=== PATIENT | female | born 1990 | race Caucasian/White ===

== ENCOUNTER 2022-07-07 10:08 | Inpatient (IN) | payer OTHER ==
[~2022-07-07] VITALS: Ht 160 cm; Wt 60.5 kg
[2022-07-07] MEDS ORDERED: ACETAMINOPHEN 325 MG TABLET PO ONE (10:45)
[2022-07-07] MEDS ORDERED: ONDANSETRON HCL 4 MG TABLET PO ONE (10:45)
[2022-07-07] MEDS ORDERED: LIDOCAINE 5% TRANSDERMAL PATCH TD ONE (10:45)
[2022-07-07 10:54] LABS: BASOPHILS % (AUTO) 0.6 % (0.0-2.0); EOSINOPHILS % (AUTO) 0.3 % (1.0-6.0); HEMATOCRIT 48.1 % (36-46); HEMOGLOBIN 16.1 g/dL (12.0-16.0); LYMPHOCYTES # (AUTO) 1.4 K/uL (1.0-4.8); LYMPHOCYTES % (AUTO) 12.6 % (22.0-44.0); MEAN CORPUSCULAR HEMOGLOBIN 27.5 pg (26.0-34.0); MEAN CORPUSCULAR HGB CONC 33.5 G/dL (31.0-37.0); MEAN CORPUSCULAR VOLUME 82 fL (80-100); MONOCYTES # (AUTO) 0.4 K/uL (0.1-1.0); MONOCYTES % (AUTO) 3.9 % (2.0-9.0); NEUTROPHILS % (AUTO) 82.6 % (40.0-70.0); PLATELET COUNT (AUTO) 193 K/uL (150-450); RED BLOOD CELL COUNT(AUTO) 5.86 MIL/uL (4.00-5.20); RED CELL DISTRIBUTION WIDTH 13.8 % (11.5-14.5)
[2022-07-07 11:07] LABS: ANION GAP 10 mmol/L (8-16); CALCIUM, TOTAL 9.6 mg/dL (8.8-10.5); CARBON DIOXIDE 25 mmol/L (22-29); CHLORIDE 100 mmol/L (98-107); GLOMERULAR FILTR. RATE CALC > 60 mL/min (>60); GLUCOSE,RANDOM 134 mg/dL (70-110); SODIUM SERUM 135 mmol/L (136-145); UREA NITROGEN, BLOOD 9 mg/dL (7-18)
[2022-07-07 11:12] LABS: ALANINE AMINOTRANSFERASE 49 U/L (12-78); ALBUMIN 3.7 g/dL (3.4-5.0); ALKALINE PHOSPHATASE 110 U/L (46-116); ASPARTATE AMINOTRANSFERASE 24 U/L (15-37); BILIRUBIN,TOTAL 0.5 mg/dL (0.1-1.0); TOTAL PROTEIN, SERUM 7.8 g/dL (6.4-8.2)
[2022-07-07] MEDS ORDERED: QUEtiapine FUMARATE 100 MG TABLET PO ONE (11:15)
[2022-07-07] MEDS ORDERED: LORazepam 1 MG TABLET PO ONE (11:15)
[2022-07-07 12:21] LABS: COVID AG,FIA SOURCE NASAL SWAB
[2022-07-07 13:31] LABS: APPEARANCE,URINE HAZY (CLEAR); BILIRUBIN,URINE NEGATIVE (NEGATIVE); GLUCOSE, URINE (UA) NEGATIVE (NEGATIVE); KETONES,URINE TRACE mg/dL (NEGATIVE); LEUKOCYTE ESTERASE ,URINE MODERATE (NEGATIVE); NITRATE,URINE NEGATIVE (NEGATIVE); OCCULT BLOOD,URINE NEGATIVE (NEGATIVE); PH,URINE 5.5 (5.0-8.0); PROTEIN,URINE TRACE mg/dL (NEGATIVE); SPECIFIC GRAVITIY, URINE 1.015 (1.003-1.030); UROBILINOGEN,URINE <=1.0 mg/dL (<=1.0)
[2022-07-07 13:39] LABS: AMPHET/METH SCREEN,URINE NEGATIVE (NEGATIVE); BARBITURATE SCREEN, URINE NEGATIVE (NEGATIVE); BENZODIAZEPINES SCREEN,URINE NEGATIVE (NEGATIVE); CANNABINOID SCREEN,URINE POSITIVE (NEGATIVE); COCAINE SCREEN,URINE NEGATIVE (NEGATIVE); METHADONE SCREEN, URINE NEGATIVE (NEGATIVE); OPIATE SCREEN,URINE NEGATIVE (NEGATIVE); PHENCYCLIDINE SCREEN,URINE NEGATIVE (NEGATIVE)
[2022-07-07 13:57] LABS: BACTERIA,URINE Moderate /HPF (None Seen); RBC,URINE None Seen /HPF (0-2); SQUAMOUS EPITHELIAL CELL,UR Few /LPF (None Seen)
[2022-07-07 14:09] VITALS: BP 123/69
[2022-07-07 20:19] VITALS: BP 118/88
[2022-07-07] MEDS ORDERED: MAGNESIUM HYDROXIDE SUSPENSION 30 ML UDCUP PO PRN (21:00)
[2022-07-07] MEDS ORDERED: ZOLPIDEM TARTRATE 5 MG TABLET PO PRN (21:00)
[2022-07-07] MEDS ORDERED: BISACODYL 10 MG RECTAL RECTAL SUPPOSITORY PR PRN (21:00)
[2022-07-07] MEDS ORDERED: IPRATROPIUM BROMIDE 0.5 MG/2.5 ML NEB SOLUTION NEB PRN (21:00)
[2022-07-07] MEDS ORDERED: ALBUTEROL SULFATE 2.5 MG/0.5 ML NEB SOLUTION NEB PRN (21:00)
[2022-07-07] MEDS ORDERED: ONDANSETRON HCL 4 MG/2 ML VIAL IVP PRN (21:00)
[2022-07-08 07:40] VITALS: BP 116/66
[2022-07-08] MEDS: HEPARIN SODIUM,PORCINE 5,000 UNITS/ML VIAL SQ SCH ×4 (08:00→23:35)
[2022-07-08] MEDS: PANTOPRAZOLE SODIUM 40 MG DR TABLET PO SCH (08:33)
[2022-07-08] MEDS: RisperiDONE 1 MG TABLET PO SCH ×2 (09:59→20:11)
[2022-07-08] MEDS: NICOTINE 14 MG/24 HOUR PATCH TD SCH (20:12)
[2022-07-08 20:43] VITALS: BP 116/67
[2022-07-08] MEDS ORDERED: RisperiDONE 1 MG TABLET PO SCH (21:00)
[2022-07-09] MEDS: ACETAMINOPHEN 325 MG TABLET PO PRN ×2 (03:29→08:09)
[2022-07-09 04:37] VITALS: BP 112/66
[2022-07-09] MEDS: PANTOPRAZOLE SODIUM 40 MG DR TABLET PO SCH (07:57)
[2022-07-09] MEDS: RisperiDONE 1 MG TABLET PO SCH (07:57)
[2022-07-09] MEDS: HEPARIN SODIUM,PORCINE 5,000 UNITS/ML VIAL SQ SCH (07:59)
[2022-07-09] MEDS: NICOTINE 14 MG/24 HOUR PATCH TD SCH (08:01)
[2022-07-09 08:02] VITALS: BP 119/72
[2022-07-09] MEDS ORDERED: RISP2TAB45 PO (13:34)
[2022-07-09] MEDS ORDERED: RisperiDONE 2 MG TABLET PO SCH (21:00)
== END 2022-07-09 13:50 | DRG 552 ==
LOC: EMS 10:09 → 6S 13:19
PROVIDERS: ADMIT Hospitalist; ATTEND Hospitalist
DX: M54.9 Dorsalgia, unspecified (principal); R45.851 Suicidal ideations; F20.9 Schizophrenia, unspecified; Z20.822 Contact with and (suspected) exposure to COVID-19; F12.90 Cannabis use, unspecified, uncomplicated; G89.29 Other chronic pain; R45.850 Homicidal ideations; R11.0 Nausea; Z87.891 Personal history of nicotine dependence
CPT/HCPCS: 80053; 80307; 81001; 84703; 85025; 87086; 87186; 99285; G0480; J1644; Q0162